=== PATIENT | female | born 1935 | race Caucasian/White ===

== ENCOUNTER 2019-07-13 03:15 | Inpatient (IN) ==
[2019-07-07 08:28] LABS: URINE SOURCE CLEAN CATCH
[2019-07-07 09:19] LABS: BASO# 0.02 X1000 (0.0-0.2); BASO% 0.4 % (0.0-0.8); EOS# 0.18 X1000 (0.0-0.7); EOS% 3.2 % (0.0-10.0); HEMATOCRIT 34.5 % (37.0-47.0); HEMOGLOBIN 11.1 g/dL (12.0-16.0); LYMPH% 37.9 % (20.5-51.1); MCH 30.1 PG (27-31); MCHC 32.2 g/dL (33-37); MCV 93.5 FL (81-99); MONO# 0.58 X1000 (0.11-0.59); MONO% 10.5 % (1.7-9.3); MPV 10.3 FL (7.4-10.4); NEUT# 2.66 X1000 (1.4-6.5); PLT 242 X1000 (130-400); RBC 3.69 XMIL (4.2-5.4); RDW 13.6 % (11.5-14.5); WBC 5.54 X1000 (4.8-10.8)
[2019-07-07 09:28] LABS: BILIRUBIN URINE NEGATIVE (NEGATIVE); BLOOD URINE NEGATIVE (NEGATIVE); COLOR YELLOW; GLUCOSE URINE NEGATIVE (NEGATIVE); KETONE URINE NEGATIVE (NEGATIVE); LEUKOCYTES URINE NEGATIVE (NEGATIVE); NITRITE URINE NEGATIVE (NEGATIVE); PH URINE 5.5; PROTEIN URINE TRACE mg/dL (NEGATIVE); SP GRAVITY URINE 1.022; TURBIDITY URINE CLEAR (CLEAR); UROBILINOGEN URINE NORMAL (NORMAL)
[2019-07-07 09:29] LABS: CREATININE 0.9 mg/dL (0.5-0.9); POTASSIUM 4.2 mmol/L (3.5-5.1)
[2019-07-07 09:32] LABS: UR EPITHELIAL CELLS <10 /HPF (<10); URINE BACTERIA NEGATIVE /HPF; URINE RBC <10 /HPF (<10); URINE WBC <10 /HPF (<10)
[2019-07-07 09:47] LABS: INR 1.06; PROTIME 13.9 Seconds (11.0-16.0)
[2019-07-07 09:49] LABS: PTT 30.8 Seconds (22.3-41.8)
[2019-07-13] MEDS ORDERED: KEFZOL 1 GM/D5W 1 GM/50 ML IVPB ONE (08:44)
[2019-07-13] MEDS ORDERED: REGLAN ONE (08:44)
[2019-07-13] MEDS ORDERED: COLACE ONE (08:44)
[2019-07-13] MEDS ORDERED: CELEBREX ONE (08:44)
[2019-07-13] MEDS ORDERED: PEPCID ONE (08:44)
[2019-07-13] MEDS ORDERED: LYRICA ONE (08:44)
[2019-07-13] MEDS ORDERED: LR 1,000 ML ONE (08:44)
[2019-07-13] MEDS ORDERED: VERSED ONE (09:41)
[2019-07-13] MEDS ORDERED: DIPRIVAN 1% ONE (09:42)
[2019-07-13] MEDS ORDERED: ROBINUL ONE (09:42)
[2019-07-13] MEDS ORDERED: XYLOCAINE-MPF 2% ONE (09:42)
[2019-07-13] MEDS ORDERED: MARCAINE 0.25% PF ONE (09:43)
[2019-07-13] MEDS ORDERED: TORADOL ONE (09:43)
[2019-07-13] MEDS ORDERED: DURAMORPH ONE (09:43)
[2019-07-13] MEDS ORDERED: CYKLOKAPRON 1,000 MG/NS 1,000 MG/100 ML IVPB ONE (09:43)
[2019-07-13] MEDS ORDERED: EXPAREL 1.3% ONE (09:43)
[2019-07-13] MEDS ORDERED: SODIUM CHLORIDE 0.9% ONE (09:43)
[2019-07-13] MEDS ORDERED: OFIRMEV 1000 MG/ISOTONIC SOLN 1,000 MG/100 ML BOTTLE ONE (10:57)
[2019-07-13] MEDS ORDERED: DECADRON ONE (10:57)
[2019-07-13 11:25] LABS: URINE SOURCE CLEAN CATCH
[2019-07-13 11:28] LABS: BILIRUBIN URINE NEGATIVE (NEGATIVE); BLOOD URINE NEGATIVE (NEGATIVE); COLOR YELLOW; GLUCOSE URINE NEGATIVE (NEGATIVE); KETONE URINE NEGATIVE (NEGATIVE); LEUKOCYTES URINE NEGATIVE (NEGATIVE); NITRITE URINE NEGATIVE (NEGATIVE); PH URINE 5.5; PROTEIN URINE NEGATIVE (NEGATIVE); SP GRAVITY URINE 1.015; TURBIDITY URINE CLEAR (CLEAR); UROBILINOGEN URINE NORMAL (NORMAL)
[2019-07-13 11:30] LABS: UR EPITHELIAL CELLS <10 /HPF (<10); URINE BACTERIA NEGATIVE /HPF; URINE RBC <10 /HPF (<10); URINE WBC <10 /HPF (<10)
[2019-07-13] MEDS ORDERED: NEO-SYNEPHRINE ONE (11:49)
[2019-07-13] MEDS ORDERED: NS 1,000 ML ONE (12:13)
[2019-07-13] MEDS ORDERED: ZOFRAN ODT PO PRN (13:45)
[2019-07-13] MEDS ORDERED: MORPHINE IV PRN ×3 (13:45)
[2019-07-13] MEDS ORDERED: ZOFRAN IV PRN (13:45)
[2019-07-13] MEDS: OXY IR PO PRN ×2 (14:12→20:10)
--- NOTE | 2019-07-13 16:17 | OPERATIVE NOTE ---
PROCEDURE DATE: 07/13/2019 PREOPERATIVE DIAGNOSIS: Degenerative joint disease, left hip. POSTOP DIAGNOSIS: Degenerative joint disease, left hip. PROCEDURE PERFORMED: Left anterior hip replacement. SURGEON: Sintia Chavez MD. FAMILY LITERACY COORDINATOR: DOUG Karimi. Mr. Aden was necessary for proper retraction and manipulation of the hip during the case. ANESTHESIA: Spinal. COMPLICATION: None. PROCEDURE IN DETAIL: This 83-year-old female presents for left anterior hip replacement. Risks, benefits, and no guarantees were discussed and the patient is willing to proceed. She was taken to the operating room and satisfactory anesthesia obtained. The patient was placed on the Hutchinson table and left hip prepped and draped in usual sterile fashion. A time-out was taken to confirm operative site, procedure, and patient. An anterior approach to the left hip was undertaken through a incision starting 1 cm distal and lateral to the anterior superior iliac spine and curved over the anterior thigh for 10 cm. Dissection was carried down through the skin and subcutaneous fat to the fascia of the tensor fascia dori. This was split in line with the incision and blunt dissection along the inner membrane of the tensor undertaken down the anterior hip capsule. Cobra retractors were placed over the superior and inferior aspect of the femoral neck and a capsulotomy incision made to expose the hip joint. At this point the C-arm was used to reference preop leg lengths of which the left lower extremity was roughly a centimeter short prior to hip replacement due to degeneration. With Cobra retractors around the femoral neck, femoral neck osteotomy was made and the femoral neck and head removed. A very small Cobra retractor was carefully placed directly on the anterior acetabular bone with care taken to protect the neurovascular structures anteriorly. Sequential reaming of the hip was undertaken up to a 51 reamer. A Gallery AlSharquy 52 Gription cup was then impacted in the acetabulum in roughly 45 degrees of abduction and 15 degrees of anteversion with secure press-fit fixation. A 25 length screw was placed in the 12 o'clock position of the cup. A 0 degree 36 mm inner diameter polyethylene bearing was impacted into the cup. The cup liner, interface and liner bone interface was checked and noted to be stable. Traction was released off the leg and the Hutchinson table utilized to externally rotate and extend the hip for broaching of the proximal femur. Sequential broaching of the proximal femur using the Actis system was undertaken up to a size 7 stem. A standard neck collar with a +5 head neck taper revealed the best stability and yazidi of leg length. The trial stem was removed and a size 7 standard collar Actis stem was impacted in the proximal femur with secure axial and rotational stability. A ceramic head with a +5 neck taper was impacted onto this and the hip reduced. Final range of motion revealed no posterior instability with flexion of the hip and internal rotation as well as no anterior instability with extension of the hip to the floor and externally rotating it up to 75 degrees. The wound was copiously irrigated with irrigant. The C-arm was used to verify accurate hardware placement and geometry as well as leg lengths. The joint capsule was injected with Exparel for pain management. A Hemovac drain was placed. The fascia of the tensor was closed with a running V-Loc suture, the subcutaneous with 2- 0 Vicryl and the skin with skin eric. Sterile dressings completed the closure and the patient was recovered from anesthesia and transferred to the recovery room in stable condition. No intraoperative complications were noted. Instrument count and sponge count was correct at the time of closure. cc: Mio Chavez MD
[2019-07-13] MEDS ORDERED: CYKLOKAPRON 1,000 MG in NS 100 ML IV ONE (16:40)
[2019-07-13] MEDS: NS 1,000 ML IV SCH ×2 (16:49→23:27)
[2019-07-13] MEDS: KEFZOL 1 GM/D5W 1 GM/50 ML IVPB IV SCH (17:52)
[2019-07-13] MEDS: TYLENOL PO SCH ×2 (17:52→23:25)
[2019-07-13] MEDS: ULTRAM PO SCH ×2 (17:52→23:25)
--- NOTE | 2019-07-13 19:21 | ORTHOPAEDICS PROGRESS NOTE ---
DATE: 07/13/2019 Ms. Bojorquez is seen status post anterior hip replacement. Her bandage is clean and dry. She has minimal discomfort. Vital signs are stable and she is alert and oriented. She has no complaints. She is able to extend the knee, flex the hip, as well as work the ankle up and down. There is no active bleeding. We will plan on mobilizing her. She can be discharged home when she is mobilizing well. cc: Mio Chavez MD
[2019-07-13] MEDS: PERIDEX MT SCH (20:08)
[2019-07-13] MEDS: COLACE PO SCH (20:10)
[2019-07-13] MEDS: FERROUS SULFATE PO SCH (20:11)
[2019-07-13] MEDS: LOPRESSOR PO SCH (20:11)
[2019-07-13] MEDS: SYNTHROID PO SCH (20:11)
[2019-07-13] MEDS: LIPITOR PO SCH (20:11)
[2019-07-13] MEDS: CELEBREX PO SCH (20:11)
[2019-07-13] MEDS: FOLIC ACID PO SCH (20:11)
[2019-07-14] MEDS: KEFZOL 1 GM/D5W 1 GM/50 ML IVPB IV SCH (02:05)
[2019-07-14] MEDS: OXY IR PO PRN ×3 (02:05→22:20)
[2019-07-14] MEDS: TYLENOL PO SCH ×3 (06:11→16:36)
[2019-07-14] MEDS: ULTRAM PO SCH ×3 (06:11→16:35)
[2019-07-14 07:19] LABS: HEMATOCRIT 25.6 % (37.0-47.0); HEMOGLOBIN 8.4 g/dL (12.0-16.0)
[2019-07-14 07:49] LABS: AGAP 9; BUN 12 mg/dL (8-22); CALCIUM 9.5 mg/dL (8.8-10.2); CHLORIDE 103 mmol/L (98-107); COSMO 277; CREATININE 0.7 mg/dL (0.5-0.9); ESTIMATED GFR > 60; GLUCOSE 125 mg/dL (70-104); POTASSIUM 4.9 mmol/L (3.5-5.1); SODIUM 138 mmol/L (136-145); TCO2 26 mmol/L (25-35)
[2019-07-14] MEDS: NS 1,000 ML IV SCH ×2 (07:54→19:13)
[2019-07-14] MEDS: CELEBREX PO SCH ×2 (08:56→22:19)
[2019-07-14] MEDS: PERIDEX MT SCH ×2 (08:56→22:20)
[2019-07-14] MEDS: NORVASC PO SCH (08:56)
[2019-07-14] MEDS: ASPIRIN PO SCH (08:56)
[2019-07-14] MEDS: PRINIVIL PO SCH (08:57)
[2019-07-14] MEDS: COLACE PO SCH ×2 (08:58→22:19)
[2019-07-14] MEDS: GLUCOPHAGE PO SCH (08:58)
[2019-07-14] MEDS: LOPRESSOR PO SCH ×2 (08:59→22:19)
[2019-07-14] MEDS: PEPCID PO SCH (09:00)
--- NOTE | 2019-07-14 12:21 | ORTHOPAEDICS PROGRESS NOTE ---
DATE: 07/14/2019 Ms. Virgen is seen status post anterior hip replacement. At the present time, she is awake and alert and mobilizing. She has stable vital signs. She does have some drop in her hematocrit down to 25. Will continue to monitor that. Will plan on discharging her to an inpatient rehab facility given her age and geriatric needs, as well as anemia. She is a high risk for falls, and would be best treated with inpatient facility. Will see her tomorrow, and get the psychosocial rehabilitation counselor working today on rehab placement for either tomorrow or Friday. cc: Mio Chavez MD
--- NOTE | 2019-07-14 15:59 | Diag Imaging Result Doc PS360 ---
EXAM: CHEST-PORTABLE 07/14/2019 HISTORY: for rehab placement TECHNIQUE: AP portable at 1551 COMMENT: There is borderline cardiomegaly. The inspiration is somewhat suboptimal. There are no previous studies. There is no evidence of acute pulmonary disease. IMPRESSION: No acute disease. Electronically signed by Maykel Grullon 07/14/2019 3:56 PM
[2019-07-14] MEDS: FOLIC ACID PO SCH (22:18)
[2019-07-14] MEDS: SYNTHROID PO SCH (22:19)
[2019-07-14] MEDS: LIPITOR PO SCH (22:19)
[2019-07-14] MEDS: FERROUS SULFATE PO SCH (22:19)
[2019-07-15] MEDS: TYLENOL PO SCH ×4 (03:38→21:40)
[2019-07-15] MEDS: ULTRAM PO SCH ×4 (03:38→21:50)
[2019-07-15] MEDS: NS 1,000 ML IV SCH ×2 (06:43→21:48)
[2019-07-15 06:44] LABS: HEMATOCRIT 22.6 % (37.0-47.0); HEMOGLOBIN 7.2 g/dL (12.0-16.0)
[2019-07-15] MEDS: PEPCID PO SCH (08:39)
[2019-07-15] MEDS: GLUCOPHAGE PO SCH (08:39)
[2019-07-15] MEDS: ASPIRIN PO SCH (08:39)
[2019-07-15] MEDS: LOPRESSOR PO SCH ×2 (08:39→21:39)
[2019-07-15] MEDS: PERIDEX MT SCH ×2 (08:39→21:38)
[2019-07-15] MEDS: CELEBREX PO SCH ×2 (08:39→21:39)
[2019-07-15] MEDS: COLACE PO SCH ×2 (08:39→21:39)
[2019-07-15] MEDS: OXY IR PO PRN ×2 (12:35→21:37)
[2019-07-15] MEDS: PRINIVIL PO SCH (16:28)
[2019-07-15] MEDS: NORVASC PO SCH (16:28)
--- NOTE | 2019-07-15 18:11 | ORTHOPAEDICS PROGRESS NOTE ---
DATE: 07/15/2019 SUBJECTIVE DATA: Ms. Virgen is seen postoperative day 2, of her left total hip arthroplasty. She states she is doing well, but is somewhat tired. She reports she does have a history of anemia. OBJECTIVE DATA: She has good sensation in left lower extremity. Bandages are clean and dry. There is negative Homans sign. The patient is able to flex her quadriceps muscles without difficulty. CURRENT LABORATORY: Hemoglobin is 7.2, hematocrit 22.6. ASSESSMENT: 1. Anemia. 2. Degenerative joint disease of left hip with left total hip arthroplasty. PLAN: We plan on going ahead and giving Ms. Virgen 1 unit of packed red blood cells. We will check back on her tomorrow and likely get her discharged to inpatient rehab. We will check back on her then. Dictated by DOUG Karimi for Mio Chavez MD cc: DOUG Karimi MD
[2019-07-15] MEDS: FOLIC ACID PO SCH (21:38)
[2019-07-15] MEDS: FERROUS SULFATE PO SCH (21:39)
[2019-07-15] MEDS: LIPITOR PO SCH (21:39)
[2019-07-15] MEDS: SYNTHROID PO SCH (21:39)
[2019-07-16] MEDS: TYLENOL PO SCH ×2 (03:38→10:57)
[2019-07-16] MEDS: ULTRAM PO SCH ×2 (03:38→10:56)
[2019-07-16 06:50] LABS: HEMATOCRIT 27.4 % (37.0-47.0); HEMOGLOBIN 8.9 g/dL (12.0-16.0)
[2019-07-16 07:30] VITALS: BP 126/62
--- NOTE | 2019-07-16 08:33 | DISCHARGE SUMMARY ---
ADMISSION DATE: 07/13/2019 DISCHARGE DATE: 07/16/2019 ADMITTING DIAGNOSIS: Degenerative joint disease of the left hip. DISCHARGE DIAGNOSIS: Degenerative joint disease of the left hip. PRINCIPAL PROCEDURE: Left total hip arthroplasty. PAST MEDICAL HISTORY: Includes anemia, diabetes, hypertension, hypothyroidism, osteoarthritis. ALLERGIES: There is no known drug allergy. HOSPITAL COURSE: The patient was taken to the operating room on 07/13/2019 where a left total hip arthroplasty was performed. She tolerated the procedure well. She was taken to the recovery room. She did great in the recovery and was brought to the Surgical floor. Mechanical and chemical DVT prophylaxis were initiated. Routine postoperative antibiotics were administered. Her Hemovac drain was discontinued on postoperative day 2. She walked with Physical Therapy without difficulty. She was able to spontaneously void. She transitioned to oral pain medication. Incision remained clean, dry, and intact during the hospital course. The patient had good sensation of the left lower extremity. There is good pedal pulses. She was felt ready to be discharged on 07/16/2019. DISPOSITION: She is to be discharged in inpatient rehab. FOLLOWUP: She is to follow up with Dr. Chavez in roughly 2 weeks. DISCHARGE INSTRUCTIONS: Discharged to inpatient rehab and we wrote prescriptions for [place] 10 for pain, ferrous sulfate for iron replacement, aspirin 325 daily, and doxycycline 100 mg b.i.d. for infection prevention. Also gave her prescription for Phenergan in case she gets nauseous. Dictated by DOUG Karimi for Mio Chavez MD cc: DOUG Karimi MD
[2019-07-16] MEDS: CELEBREX PO SCH (10:54)
[2019-07-16] MEDS: PEPCID PO SCH (10:55)
[2019-07-16] MEDS: NORVASC PO SCH (10:55)
[2019-07-16] MEDS: ASPIRIN PO SCH (10:55)
[2019-07-16] MEDS: COLACE PO SCH (10:55)
[2019-07-16] MEDS: PRINIVIL PO SCH (10:55)
[2019-07-16] MEDS: LOPRESSOR PO SCH (10:55)
[2019-07-16] MEDS: GLUCOPHAGE PO SCH (10:55)
[2019-07-16] MEDS: PERIDEX MT SCH (10:56)
[2019-07-30] MEDS ORDERED: PATIENT'S OWN MED INJ SCH (09:00)
== END 2019-07-16 11:11 | DRG 470 ==
LOC: SURHOLD 03:15 → 4N 10:40
PROVIDERS: ADMIT Orthopaedic Surgery Adult Reconstructive Orthopaedic Surgery; ATTEND Orthopaedic Surgery Adult Reconstructive Orthopaedic Surgery